=== PATIENT | male | born 1975 | race Caucasian/White ===

== ENCOUNTER 2023-08-10 04:10 | Emergency (ER) | payer OTHER ==
[~2023-08-10] VITALS: Ht 172.7 cm; Wt 99.0 kg
[~2023-08-10 04:10] MED LIST: ANAPROX DS550 MG PO; CITALOPRAM HBR40 MG PO; CLINDAMYCIN HC300 MG PO; CYCLOBENZAPRINE10 MG PO; CYCLOBENZAPRINE5 MG PO; HYDROCODON-ACE1 EAC8 PO; LIDODERM700 MG TOP; LIPITOR20 MG PO; NAPROSYN500 MG PO; NORCO 10-325 T1 EACH PO; NORCO 5-325 TA1 EACH PO; PAROXETINE HCL20 MG PO; PRAMIPEXOLE DIHY1 MG PO; ULTRAM50 MG PO; WARFARIN SODIU2.5 MG PO; XARELTO10 MG PO; ZOFRAN ODT8 MG PO
[2023-08-10 04:27] LABS: EOSINOPHILS 1.3 % (0-6); HEMOGLOBIN 14.6 g/dL (12.0-18.0); LYMPHOCYTES 38.3 % (24-44); MCH 32.3 (27-36); MCHC 35.7 g/dl (30-36); MCV 90.6 fl (81-99); MONOCYTES 11.4 % (0-12); PLATELET COUNT 304 K/uL (140-440); RBC 4.52 M/ul (4.3-5.7); RDW 12.8 (10.5-15.0)
[2023-08-10] MEDS ORDERED: XARELTO20 MG PO (04:32)
[2023-08-10 04:34] LABS: INR 1.07 (0.80-1.30); PROTIME 13.4 Sec (11.2-14.2)
[2023-08-10 04:42] LABS: ALBUMIN 3.7 g/dL (3.4-5.0); ALBUMIN/GLOBULIN RATIO 0.86 (1.1-2.4); ANION GAP 14.5 (7-21); BILIRUBIN, TOTAL 0.6 ng/dL (0.2-1.0); BUN/CREATININE RATIO 14.95 (6.0-28.6); CALCIUM 8.9 mg/dL (8.5-10.1); CREATININE, SERUM 1.07 mg/dL (0.70-1.30); POTASSIUM 3.5 mmol/L (3.5-5.1)
[2023-08-10] MEDS ORDERED: HYDROCODON-ACE1 EA10 PO (06:13)
[2023-08-10 06:38] VITALS: BP 126/77
--- NOTE | 2023-08-11 06:20 | EKG ---
[facility] [address] [facility] [place] [address] Signed Poor data quality, interpretation may be adversely affected Normal sinus rhythm Normal ECG When compared with ECG of 15-DEC-2016 00:52, No significant change was found Confirmed by KIM AMBRIZ MD ([id number]) on 08/11/2023 6:20:02 AM Electronically Signed By: KIM AMBRIZ 08/11/23 0620 PATIENT NAME: RADHANERY Electrocardiogram DATE OF : 79 PHYSICIAN: KIM AMBRIZ REPORT #: [id number] REPORT IS CONFIDENTIAL AND NOT TO BE RELEASED WITHOUT AUTHORIZATION
== END 2023-08-10 06:40 | disposition home or self-care (01) ==
LOC: ED 04:10
PROVIDERS: Family Medicine
DX: R07.89 Other chest pain (principal); M54.9 Dorsalgia, unspecified; F17.200 Nicotine dependence, unspecified, uncomplicated; Z88.5 Allergy status to narcotic agent; Z79.01 Long term (current) use of anticoagulants; Z79.899 Other long term (current) drug therapy
CPT/HCPCS: 36415; 71045; 80053; 83735; 84484; 85025; 85379; 85610; 93005; 93010; 96374; 96375; 99284-25; A9270; J2405; J3010

== ENCOUNTER 2023-10-22 18:32 | Emergency (ER) | payer OTHER ==
[~2023-10-22] VITALS: Ht 172.7 cm; Wt 99.8 kg
[~2023-10-22 18:32] MED LIST changes: +HYDROCODON-ACE1 EA10 PO; +XARELTO20 MG PO
[2023-10-22] MEDS ORDERED: GABAPENTIN600 MG (18:41)
[2023-10-22] MEDS ORDERED: GABAPENTIN600 MG PO (20:01)
[2023-10-22] MEDS ORDERED: XARELTO1 EACH PO (20:01)
[2023-10-22] MEDS ORDERED: XARELTO20 MG PO (20:01)
[2023-10-22 20:27] VITALS: BP 130/98
== END 2023-10-22 20:25 | disposition home or self-care (01) ==
LOC: ED 18:32
DX: I82.462 Acute embolism and thrombosis of left calf muscular vein (principal); I10 Essential (primary) hypertension; F17.200 Nicotine dependence, unspecified, uncomplicated; Z88.5 Allergy status to narcotic agent; Z79.02 Long term (current) use of antithrombotics/antiplatelets
CPT/HCPCS: 93971; 96372; 99283-25; A9270; J1650

== ENCOUNTER 2024-10-27 17:41 | Emergency (ER) | payer OTHER ==
[~2024-10-27] VITALS: Ht 172.7 cm; Wt 130.6 kg
[~2024-10-27 17:41] MED LIST changes: +GABAPENTIN600 MG; +GABAPENTIN600 MG PO; +XARELTO1 EACH PO
[2024-10-27] MEDS ORDERED: ATORVASTATIN CA40 MG PO (17:53)
[2024-10-27] MEDS ORDERED: VITAMIN D21250 MCG PO (17:53)
[2024-10-27 18:07] LABS: HEMOGLOBIN 14.8 g/dL (12.0-18.0)
[2024-10-27 18:09] LABS: BASOPHILS 0.7 % (0-2); EOSINOPHILS 1.3 % (0-6); HEMATOCRIT 41.6 % (35.0-50.0); LYMPHOCYTES 32.6 % (24-44); MCH 33.4 (27-36); MCHC 35.6 g/dl (30-36); MCV 93.8 fl (81-99); MONOCYTES 8.7 % (0-12); NEUTROPHILS 56.7 % (39-80); PLATELET COUNT 313 K/uL (140-440); RBC 4.44 M/ul (4.3-5.7); RDW 13.8 (10.5-15.0)
[2024-10-27 18:27] LABS: ALBUMIN 3.6 g/dL (3.4-5.0); ALKALINE PHOSPHATASE 121 U/L (46-116); ALT (SGPT) 64 U/L (14-59); ANION GAP 14.5 (7-21); AST (SGOT) 24 U/L (15-37); BILIRUBIN, TOTAL 0.4 ng/dL (0.2-1.0); CALCIUM 8.9 mg/dL (8.5-10.1); CARBON DIOXIDE 24 mmol/L (21-32); CHLORIDE 104 mmol/L (98-107); CREATININE, SERUM 1.09 mg/dL (0.70-1.30); GLOMERULAR FILTRATION RATE,EST 84 mL/min (>60); POTASSIUM 3.5 mmol/L (3.5-5.1); PROTEIN, TOTAL 7.6 g/dL (6.4-8.2); UREA NITROGEN 12 mg/dL (7-18)
[2024-10-27 18:45] LABS: INFLUENZA B NAA NEGATIVE (NEGATIVE); RESPIRATORY SYNCYTIAL VIR NAA NEGATIVE (NEGATIVE)
[2024-10-27 19:00] VITALS: BP 119/80
== END 2024-10-27 19:00 | disposition home or self-care (01) ==
LOC: ED 17:41
PROVIDERS: Emergency Medicine
DX: R06.02 Shortness of breath (principal); I10 Essential (primary) hypertension; F17.200 Nicotine dependence, unspecified, uncomplicated; Z88.5 Allergy status to narcotic agent; Z79.899 Other long term (current) drug therapy; Z79.01 Long term (current) use of anticoagulants
CPT/HCPCS: 36415; 71260; 80053; 83880; 84484; 85025; 85379; 87502; 93005; 93010; 99285-25; Q9967; U0002

== ENCOUNTER 2024-12-08 18:10 | Emergency (ER) | payer OTHER ==
[~2024-12-08] VITALS: Ht 172.7 cm; Wt 134.7 kg
[2024-12-08 19:51] LABS: BASOPHILS 0.9 % (0-2); EOSINOPHILS 1.3 % (0-6); HEMATOCRIT 41.2 % (35.0-50.0); HEMOGLOBIN 14.6 g/dL (12.0-18.0); LYMPHOCYTES 35.1 % (24-44); MCH 33.3 (27-36); MCHC 35.5 g/dl (30-36); MCV 93.9 fl (81-99); MONOCYTES 8.4 % (0-12); NEUTROPHILS 54.3 % (39-80); PLATELET COUNT 305 K/uL (140-440); RBC 4.39 M/ul (4.3-5.7); RDW 13.7 (10.5-15.0)
[2024-12-08] MEDS ORDERED: ondansetron HCL 4 MG/2 ML VIAL IV ONE (20:00)
[2024-12-08] MEDS ORDERED: HYDROmorphone HCL 1 MG/ML SYR IV ONE (20:00)
[2024-12-08 20:09] LABS: ALBUMIN 3.3 g/dL (3.4-5.0); ALBUMIN/GLOBULIN RATIO 0.83 (1.1-2.4); ANION GAP 11.4 (7-21); BILIRUBIN, TOTAL 0.4 ng/dL (0.2-1.0); BUN/CREATININE RATIO 10.37 (6.0-28.6); CALCIUM 8.7 mg/dL (8.5-10.1); CREATININE, SERUM 1.06 mg/dL (0.70-1.30); POTASSIUM 3.4 mmol/L (3.5-5.1); PROTEIN, TOTAL 7.3 g/dL (6.4-8.2)
[2024-12-08 20:36] LABS: LACTIC ACID, BLOOD 0.9 mmol/L (0.4-2.0)
[2024-12-08 22:00] VITALS: BP 140/87
[2024-12-08] MEDS ORDERED: ONDANSETRON 4 MG HOME.PACK SL ONE (22:00)
[2024-12-08] MEDS ORDERED: HYDROCODONE BIT/ACETAMINOPHEN 5/325 MG 1 TAB HOME.PACK PO ONE (22:00)
== END 2024-12-08 22:00 | disposition home or self-care (01) ==
LOC: ED 18:10
PROVIDERS: Emergency Medicine
DX: R60.0 Localized edema (principal); I10 Essential (primary) hypertension; F17.290 Nicotine dependence, other tobacco product, uncomplicated; Z88.5 Allergy status to narcotic agent; Z79.01 Long term (current) use of anticoagulants; Z79.899 Other long term (current) drug therapy
CPT/HCPCS: 36415; 73706; 80053; 82553; 83605; 85025; 99284-25; A9270; J1171; J2405; Q9967

== ENCOUNTER 2024-12-11 16:34 | Emergency (ER) | payer OTHER ==
[~2024-12-11] VITALS: Ht 172.7 cm; Wt 135.2 kg
[~2024-12-11 16:34] MED LIST changes: +ATORVASTATIN CA40 MG PO; +LASIX20 MG PO; +POTASSIUM CHLO10 MEQ PO; +VITAMIN D21250 MCG PO; +VRAYLAR1.5 MG PO
--- OUTSIDE RECORDS SUMMARY | 2024-12-11 16:41 | XMS ---
PreManage Notification: NERY GARCIA Security Support Assistant Events No recent Security Events currently on file CRITERIA MET - 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 E.D. VISIT COUNT (12 MO.) 3 DAILY [place] 2 [facility] TOTAL 5 NOTE: Visits indicate total known visits. ED/UCC VISIT TRACKING (12 MO.) 12/11/2024 16:34 DAILY [facility] TYPE: Emergency COMPLAINT: - LEG SWELLING 12/08/2024 18:12 DAILY [facility] TYPE: Emergency COMPLAINT: - SWOLLEN FEET DIAGNOSES: - Allergy status to narcotic agent - Essential (primary) hypertension - Localized edema - meterman (current) use of anticoagulants - Nicotine dependence, other tobacco product, uncomplicated - Other meterman (current) drug therapy - Pain in left leg 10/27/2024 17:41 DAILY [facility] TYPE: Emergency COMPLAINT: - SHORTNESS OF BREATH DIAGNOSES: - Allergy status to narcotic agent - Essential (primary) hypertension - longterm (current) use of anticoagulants - Nicotine dependence, unspecified, uncomplicated - Other meterman (current) drug therapy - Shortness of breath 08/21/2024 08:04 [facility] TYPE: Emergency DIAGNOSES: - Chest pain, unspecified - Other symptoms and signs involving cognitive functions and awareness - CHEST AND SIDE PAIN PASSED OUT 05/21/2024 21:45 [facility] TYPE: Emergency DIAGNOSES: - Chest pain, unspecified - CHEST PAIN INPATIENT VISIT TRACKING (12 MO.) No inpatient visits to display in this time frame [email or web address]
[2024-12-11] MEDS ORDERED: HYDROCODON-ACE1 EAC1 PO (17:33)
[2024-12-11 21:24] VITALS: BP 125/82
== END 2024-12-11 21:24 | disposition home or self-care (01) ==
LOC: ED 16:34
DX: M79.605 Pain in left leg (principal); M79.604 Pain in right leg; I10 Essential (primary) hypertension; F17.200 Nicotine dependence, unspecified, uncomplicated; Z88.5 Allergy status to narcotic agent; Z79.01 Long term (current) use of anticoagulants; Z79.899 Other long term (current) drug therapy
CPT/HCPCS: 93970; 99283-25